=== PATIENT | female | born 2000 | race Caucasian/White ===

== ENCOUNTER 2022-03-08 01:23 | Emergency (ER) | payer OTHER ==
[2022-03-08] MEDS ORDERED: ONDANSETRON 4 MG/2 ML VIAL IVPUSH ONE (01:48)
[2022-03-08] MEDS ORDERED: LACTATED RINGERS SOLUTION 1000 ML INFUS.BAG IV ONE (01:48)
[2022-03-08] MEDS ORDERED: ACETAMINOPHEN 1000 MG/100 ML BAG IVPB ONE (01:48)
[2022-03-08] MEDS ORDERED: MAG HYDROX/AL HYDROX/SIMETH -MYLANTA- ORAL SUSPENSION PO ONE (02:11)
[2022-03-08] MEDS ORDERED: FAMOTIDINE 20 MG/50 ML IVPB 20 MG/50 ML MG IVPB ONE ×2 (02:11→03:10)
[2022-03-08 02:13] VITALS: BP 103/69; PULSE 98; RESP 17; TEMP 99.5; BMI 25.6
[2022-03-08] MEDS ORDERED: ONDANSETRON 4 MG/2 ML VIAL ONE (02:14)
[2022-03-08] MEDS ORDERED: ACETAMINOPHEN INJECTION 100 ML IVPB ONE (02:14)
[2022-03-08 02:50] LABS: BASO % 0.2 % (0-2.0); EOS % 0.1 % (0-4.5); HEMATOCRIT 39.5 % (32.4-45.2); HEMOGLOBIN 13.3 GM/dL (10.7-15.3); LYMPH % 24.2 % (8-40); MCH 29.3 pg (25.7-33.7); MCHC 33.7 g/dl (32.0-36.0); MEAN CELL VOLUME 87.1 fl (80-96); MEAN PLT VOLUME 8.7 fl (7.5-11.1); MONO % 13.5 % (3.8-10.2); PLATELET COUNT 155 10^3/uL (134-434); RBC 4.54 M/mm3 (3.60-5.2); RDW 13.9 % (11.6-15.6); WHITE BLOOD COUNT 3.4 K/mm3 (4.0-10.0)
[2022-03-08 03:12] LABS: CALCIUM 9.2 mg/dL (8.5-10.1)
[2022-03-08 03:13] LABS: ALBUMIN 4.6 g/dl (3.4-5.0); BLOOD UREA NITROGEN 10.2 mg/dL (7-18)
[2022-03-08 03:16] LABS: CREATININE 0.8 mg/dL (0.55-1.3)
[2022-03-08 03:17] LABS: TOT PROT 8.2 g/dl (6.4-8.2)
[2022-03-08 03:18] LABS: BILIRUBIN,TOTAL 0.7 mg/dL (0.2-1)
[2022-03-08 04:21] LABS: SYPHILIS W/ RPR CONF NON-REACTIVE (NONREACTIVE)
[2022-03-08 04:49] LABS: HIV INTERPRETATION NEGATIVE (NEGATIVE)
== END 2022-03-08 05:00 | disposition home or self-care (01) ==
LOC: JER 01:23
PROC: 3E0333Z Introduction of Anti-inflammatory into Peripheral Vein, Percutaneous Approach (ICD-10-PCS; principal; 2022-03-08)
PROC: 3E033GC Introduction of Other Therapeutic Substance into Peripheral Vein, Percutaneous Approach (ICD-10-PCS; 2022-03-08)
PROC: 3E033GC Introduction of Other Therapeutic Substance into Peripheral Vein, Percutaneous Approach (ICD-10-PCS; 2022-03-08)
DX: R11.2 Nausea with vomiting, unspecified (principal)
CPT/HCPCS: 0241U-QW; 36415; 80053; 83690; 84703; 85025; 86704; 86709; 86780; 87340; 87389; 87491; 87517; 87529; 87591; 93005; 93010; 96374; 96375; 99284-25

== ENCOUNTER 2024-08-24 14:40 | Emergency (ER) | payer OTHER ==
[2024-08-24 14:58] VITALS: BP 110/69; PULSE 85; RESP 19; TEMP 98.6; BMI 22.2
[2024-08-24] MEDS ORDERED: diazePAM 2 MG TABLET ONE (15:16)
[2024-08-24] MEDS: diazePAM 2 MG TABLET PO ONE (15:18)
== END 2024-08-24 17:18 | disposition home or self-care (01) ==
LOC: JERFT 14:40 → JER 14:40
DX: F41.9 Anxiety disorder, unspecified (principal)
CPT/HCPCS: 99283-25

== ENCOUNTER 2024-09-14 17:52 | Emergency (ER) | payer OTHER ==
[2024-09-14 18:05] VITALS: BP 106/55; PULSE 88; RESP 18; TEMP 98; BMI 23.2
[2024-09-14 19:06] LABS: URINE APPEARANCE CLEAR; URINE BILIRUBIN NEGATIVE (NEGATIVE); URINE COLOR YELLOW; URINE GLUCOSE (UA) NEGATIVE (NEGATIVE); URINE KETONE TRACE (NEGATIVE); URINE LEUK ESTERASE NEGATIVE (NEGATIVE); URINE NITRITE NEGATIVE (NEGATIVE); URINE PROTEIN NEGATIVE (NEGATIVE); URINE UROBILINOGEN 0.2 mg/dL (0.2-1.0)
== END 2024-09-14 19:07 | disposition home or self-care (01) ==
LOC: JERFT 17:52
DX: N39.0 Urinary tract infection, site not specified (principal); R30.0 Dysuria; R35.0 Frequency of micturition; R10.30 Lower abdominal pain, unspecified
CPT/HCPCS: 81003; 84703; 87086; 99283-25

== ENCOUNTER 2024-11-14 19:29 | Emergency (ER) | payer OTHER ==
[2024-11-14 19:34] VITALS: BP 101/50; PULSE 88; RESP 18; TEMP 98.1; BMI 22.6
== END 2024-11-14 21:26 | disposition home or self-care (01) ==
LOC: JERFT 19:29 → JER 19:29 → JERFT 21:26
DX: S90.31XA Contusion of right foot, initial encounter (principal); W06.XXXA Fall from bed, initial encounter
CPT/HCPCS: 73630-TC-RT-FY; 99283-25